=== PATIENT | male | born 1990 | race African-American/Black ===

== ENCOUNTER 2023-09-30 11:12 | Emergency (ER) | payer OTHER, SELFPAY ==
[2023-09-30 11:14] VITALS: BP 128/80
--- NOTE | 2023-09-30 12:19 | ED.GENMED ---
History of Present Illness
General
Chief Complaint: Chest Pain
Source: patient
Exam Limitations: none
Time Seen by Provider: 09/30/23 11:44
Nursing documentation reviewed up to this point in time: agreed with
Travel History
Have you had any contact with someone who has COVID-19?: No
Do you have any symptoms of coronavirus? Fever > 100 degrees, chills, cough, shortness of breath, sore throat, loss of taste or smell, muscle aches, or headache?: No
History of Present Illness
History of Present Illness:
Patient is a 33-year-old male with no past medical history presents to the ER for evaluation of left-sided chest pain that he has had since Thursday evening for the past 3 days. He reports a Thursday yesterday and today went to urgent care and was
sent here to the ER for he denies any associated shortness of breath but does have some pain with deep breath. It is worse when he moves and lays on his left side and at he denies any radiation. He has no prior medical history. He is a
non-smoker. He denies any drug use. Social alcohol. He reports no family history of cardiac disease though though he is unsure about his original father. 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 He denies any prior history of DVT PE or lower extremity swelling.
Review of Systems
Review of Systems
Allergies reviewed?: Yes
All Other Systems: ROS reviewed and negative except as documented in HPI and ROS
Constitutional: Reports no symptoms
Respiratory: Denies cough or trouble breathing
Cardiac: Reports chest pain; Denies diaphoresis, palpitations or syncope
: Reports no symptoms
Musculoskeletal: Reports no symptoms
Skin: Reports no symptoms
Neurological: Reports no symptoms
Psychiatric: Reports no symptoms
Phy Exam
General Physical Exam
General Presentation: no apparent distress
General age: appears stated age
General Skin: warm and dry
General Habitus: normal
General Mental: alert
General Hydration: appears well hydrated
Cardiovascular Exam
Cardiovascular Exam: regular rate/rhythm, no murmur and normal peripheral pulses
Pulmonary Exam
Pulmonary Exam: lungs clear, no respiratory distress and chest non tender
Neurological Exam
Neurological Exam: alert and oriented x3
Musculoskeletal Exam
Musculoskeletal Exam: full ROM
Skin Exam
Skin Exam: normal color and warm/dry
Psychiatric Exam
Psychiatric Exam: normal mood/affect
Scores
Heart Score for Chest Pain Patients
STEMI patient?: Not applicable
Course
Orders/Labs/Results
Orders:
Orders
09/30/23 11:17
Electrocardiogram (*1) Urgent
Reason for Study: Chest Pain
EKG- Treatment ONCE
09/30/23 12:18
Cardiac Monitoring- Treatment ONCE
IV Insert/Care/Rem.- Treatment PRN
Ketorolac [Toradol] 15 mg IV NOW STA
09/30/23 12:35
Basic Metabolic Panel Urgent
Complete Blood Count/With Diff Urgent
D-Dimer Urgent
Troponin I Urgent
09/30/23 13:[address] [CT Chest Pe Study] Urgent
Comment:
Reason For Exam: cp elevated ddimer
Abnormal Lab Results
09/30/23
12:35
RBC 4.53 L 10^6/uL
(4.70-6.10)
Hct 36.4 L %
(39.0-52.0)
MPV 11.5 H fL
(7.4-10.4)
Absolute Monos (auto) 0.7 H 10^3/uL
(0.1-0.6)
Monocytes % 11.3 H %
(1.7-9.3)
D-Dimer 0.77 H ug/mlFEU
(0.00-0.50)
09/30/23 12:35
09/30/23 12:35
Vital Signs
Initial and Last Documented VS:
Initial Vital Signs
Temp Pulse Resp BP Pulse Ox
97.9 F 65 16 128/80 100
09/30/23 11:14 09/30/23 11:14 09/30/23 11:14 09/30/23 11:14 09/30/23 11:14
Last Documented Vital Signs
Temp Pulse Resp BP Pulse Ox
97.9 F 61 20 125/74 99
09/30/23 11:14 09/30/23 15:24 09/30/23 15:24 09/30/23 15:24 09/30/23 15:24
MDM/Problems Addressed
Differential Diagnosis Includes:
Not limited to muscular pain, less likely PE less likely unstable angina
MDM/Problems Addressed:
Symptoms are consistent muscular pain. Patient has left-sided chest pain worse with deep breath and laying on his left side. He has no cardiac history. 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
scan of the chest was done and negative. Cardiac troponin unremarkable no acute findings on EKG. Will DC with ibuprofen and outpatient follow-up family doctor.
*Radiology
Radiology exam reviewed: radiology read reviewed
*Pulse Oximetry
Patient hypoxic: no
*EKG
Interpreted by ED Provider?: Yes
Heart Rate: 59
Rate: bradycardiac
Rhythm: sinus
QRS Pattern: normal QRS
Ischemia: no ischemia
*Critical Care Note
Total Time (30-74mins, 75-104mins- exclusive of procedures): Not Applicable
ED Attending Note
-
Portions of this chart may have been created with voice recognition software.� Occasional wrong word or��sound alike� substitutions may have occurred due to the inherent limitations of voice recognition software.
Discharge Plan
Departure
Patient Disposition: Home (Routine Discharge)
Date of Disposition: 09/30/23
Time of Disposition: 15:43
Patient with high blood pressure during this ER visit?: No
Condition: Fair
Covid-19: Not Applicable
Discharge Problem:
Chest pain
Instructions: Chest Pain That Is Not Caused by the Heart (DC), Chest Pain PCP Follow Up
Referrals:
UNKNOWN - PT DOES,NOT KNOW [Family Provider] -
Activity Restrictions/Additional Instructions:
Symptoms are consistent muscular chest pain. Ibuprofen 600 mg every 8 hours with food. Follow-up with family doctor in next 2 days and return if any worsening of symptoms.
Interventions
Interventions:
*Risk Screen - Suicide Last Done: 09/30/23 11:32
*General Assessment Last Done: 09/30/23 11:14
*Neglect/Abuse Screening Last Done: 09/30/23 11:32
ED- Fall Risk Assessment Last Done: 09/30/23 11:32
*ED COVID-19 Vaccine History Last Done: 09/30/23 11:14
ED- Cardiac Assessment Last Done: 09/30/23 11:32
Discharge Date and Time
Print Language: MACEDONIAN
[2023-09-30] MEDS: TORADOL 15 MG IV (12:35)
[2023-09-30 12:40] VITALS: BP 129/78
[2023-09-30 12:54] LABS: % Basophils 0.5 % (0-2); % Eosinophils 2.6 % (0-6); % Immature Granulocytes 0.3 % (0-0.5); % Lymphocytes 31.4 % (20.5-51.1); % Monocytes 11.3 % (1.7-9.3); % Neutrophils 53.9 % (42.2-75.2); Absolute Eosinophils 0.2 10^3/uL (0-0.7); Absolute Lymphocytes 1.8 10^3/uL (1.2-3.4); Absolute Monocytes 0.7 10^3/uL (0.1-0.6); Absolute Neutrophils 3.1 10^3/uL (1.4-6.5); Hematocrit 36.4 % (39.0-52.0); Mean Corp Hgb Conc. 35.7 g/dL (33.0-37.0); Mean Corpuscular Hgb 28.7 pg (27.0-31.0); Mean Corpuscular Volume 80.4 fL (80.0-94.0); Mean Platelet Volume 11.5 fL (7.4-10.4); Nucleated Red Blood Cells % 0 % (-); Platelet Count 204 10^3/uL (130-400); Red Blood Cell Count 4.53 10^6/uL (4.70-6.10); Red Cell Dist. Width 13.2 % (11.5-14.5); White Blood Cell Count 5.8 10^3/uL (4.8-10.8)
[2023-09-30 13:00] VITALS: BP 128/70
[2023-09-30 13:07] LABS: D-Dimer 0.77 ug/mlFEU (0.00-0.50)
[2023-09-30 13:18] LABS: Troponin I < 0.012 ng/ml
[2023-09-30 13:23] LABS: Blood Urea Nitrogen 13 mg/dl (9-20); Calcium 9.5 mg/dl (8.4-10.2); Carbon Dioxide 24 mmol/L (22-30); Chloride 104 mmol/L (98-107); Glucose 85 mg/dl (70-99); Sodium 137 mmol/L (135-145); eGFR > 60.00
[2023-09-30 15:24] VITALS: BP 125/74
== END 2023-09-30 16:03 | disposition home or self-care (01) ==
LOC: EMR 11:12
PROVIDERS: Nurse Practitioner; EMERGENCY PHYSICIAN Emergency Medicine
DX: R07.89 Other chest pain (principal); R79.89 Other specified abnormal findings of blood chemistry
CPT/HCPCS: 99284; 96374; 71275; 80048; 84484; 85025; 85379; 93005; Q9967